=== PATIENT | male | born 1965 | race Caucasian/White ===

== ENCOUNTER 2019-12-19 23:46 | Emergency (ER) | payer BC ==
[~2019-12-19] VITALS: Ht 172.7 cm; Wt 73.9 kg
[2019-12-19 23:47] VITALS: BP 130/73
[2019-12-20] MEDS ORDERED: LIDOCAINE 1%-EPI 1:100,000 20 ML VIAL ONE (00:21)
[2019-12-20] MEDS ORDERED: SODIUM BICARBONATE 5 ML VIAL ONE (00:23)
[2019-12-20] MEDS ORDERED: CEPHALEXIN MONOHYDRATE 500 MG CAPSULE PO ONE ×2 (00:30→01:02)
[2019-12-20] MEDS ORDERED: LIDOCAINE 1%-EPI 1:100,000 20 ML VIAL TP ONE (00:30)
[2019-12-20] MEDS ORDERED: SODIUM BICARBONATE 5 ML VIAL MC ONE (00:30)
== END 2019-12-20 01:10 | disposition home or self-care (01) ==
LOC: ER 23:54
DX: S61.011A Laceration without foreign body of right thumb without damage to nail, initial encounter (principal); S61.217A Laceration without foreign body of left little finger without damage to nail, initial encounter; W26.8XXA Contact with other sharp object(s), not elsewhere classified, initial encounter; Y93.G1 Activity, food preparation and clean up; Y92.89 Other specified places as the place of occurrence of the external cause; Y99.8 Other external cause status
CPT/HCPCS: 12002; 73130 ×2; 99283; A4217; A6403; J3490 ×2